=== PATIENT | male | born 2000 | race American Indian/Alaskan Native ===

== ENCOUNTER 2020-04-26 14:17 | Emergency (ER) | payer SELFPAY ==
[2020-04-26 14:54] VITALS: BP 157/80
--- NOTE | 2020-04-26 16:06 | Emergency Department Report ---
- General Chief complaint: Skin/Abscess/Foreign Body Stated complaint: RT ARM BUG BITE Time Seen by Provider: 04/26/20 16:03 Source: patient Mode of arrival: Ambulatory Limitations: No Limitations - History of Present Illness Initial comments: Patient is a 19-year-old male who presents the emergency room with complaints of a possible insect bite to his right forearm that occurred approximately 4 to 5 days ago. He states that he popped the bump a couple of days ago. He does not remember seeing or feeling anything bite him. He denies any drainage currently. He denies any fever, vomiting, diarrhea, chills, any other symptoms. He denies any past medical history or allergies to medications. - Related Data Previous Rx's Medication Instructions Recorded Last Taken Type Neomycin/Bacitracin/Polymyxinb 1 applicatio TP BID #1 oint...g. 04/26/20 Unknown Rx [Triple Antibiotic Ointment] Sulfamethoxazole/Trimethoprim 1 each PO BID 7 Days #14 tablet 04/26/20 Unknown Rx [Bactrim DS TAB] Allergies Allergy/AdvReac Type Severity Reaction Status Date / Time No Known Allergies Allergy Unverified 04/26/20 14:51 Abscess Boil HPI - HPI Chief Complaint: Skin/Abscess/Foreign Body Stated Complaint: RT ARM BUG BITE Time Seen by Provider: 04/26/20 16:03 Home Medications: Previous Rx's Medication Instructions Recorded Last Taken Type Neomycin/Bacitracin/Polymyxinb 1 applicatio TP BID #1 oint...g. 04/26/20 Unknown Rx [Triple Antibiotic Ointment] Sulfamethoxazole/Trimethoprim 1 each PO BID 7 Days #14 tablet 04/26/20 Unknown Rx [Bactrim DS TAB] Allergies/Adverse Reactions: Allergies Allergy/AdvReac Type Severity Reaction Status Date / Time No Known Allergies Allergy Unverified 04/26/20 14:51 ED Review of Systems ROS: Stated complaint: RT ARM BUG BITE Other details as noted in HPI Comment: All other systems reviewed and negative ED Past Medical Hx - Past Medical History Additional medical history: CANT SEE OUT OF LEFT - Surgical History Past Surgical History?: No - Medications Home Medications: Home Medications Medication Instructions Recorded Confirmed Last Taken Type Neomycin/Bacitracin/Polymyxinb 1 applicatio TP BID #1 oint...g. 04/26/20 Unknown Rx [Triple Antibiotic Ointment] Sulfamethoxazole/Trimethoprim 1 each PO BID 7 Days #14 tablet 04/26/20 Unknown Rx [Bactrim DS TAB] ED Physical Exam - General Limitations: No Limitations General appearance: alert, in no apparent distress - Head Head exam: Present: atraumatic, normocephalic - Eye Eye exam: Present: normal appearance - ENT ENT exam: Present: mucous membranes moist - Neurological Exam Neurological exam: Present: alert, oriented X3 - Psychiatric Psychiatric exam: Present: normal affect, normal mood - Skin Skin exam: Present: warm, dry, other (2 cm area of induration and erythema present to the right forearm, no fluctuance, no active drainage, no necrosis, very small area of surrounding erythema, no tracking up the arm) ED Course Vital Signs 04/26/20 04/26/20 14:54 16:02 Temperature 98.7 F 98.7 F Pulse Rate 86 88 Respiratory 18 18 Rate Blood Pressure 157/80 157/80 O2 Sat by Pulse 100 100 Oximetry ED Medical Decision Making - Medical Decision Making Patient is a 19-year-old male who presents the emergency room with complaints of a possible insect bite to his right forearm that occurred approximately 4 to 5 days ago. He states that he popped the bump a couple of days ago. He does not remember seeing or feeling anything bite him. He denies any drainage currently. He denies any fever, vomiting, diarrhea, chills, any other symptoms. He denies any past medical history or allergies to medications. VSS. on exam: 2 cm area of induration and erythema present to the right forearm, no fluctuance, no active drainage, no necrosis, very small area of surrounding erythema, no tracking up the arm. Examination consistent with cellulitis, no drainable abscess at this time. Patient given prescription for Bactrim and triple antibiotic ointment. Advised patient that the area need to be reexamined in the next 3 days, discussed with patient that if infection began worsening that he may need to have an incision and drainage procedure, at this time there is no abscess to be drained, will cover patient with course of antibiotics to treat for cellulitis. advised pt Please use medication as prescribed. Please use warm compresses 3 times a day. Please have area reexamined in 3 days. Please follow-up with your primary care doctor. Return to emergency room immediately for any new or worsening symptoms including but not limited to worsening swelling, worsening redness, worsening pain, etc. If antibiotics do not clear infection may have to have a incision and drainage procedure done in the emergency department. Critical care attestation.: If time is entered above; I have spent that time in minutes in the direct care of this critically ill patient, excluding procedure time. ED Disposition Clinical Impression: Insect bite Qualifiers: Encounter type: initial encounter Site of insect bite: forearm Laterality: right Qualified Code(s): S50.861A - Insect bite (nonvenomous) of right forearm, initial encounter Cellulitis Qualifiers: Site of cellulitis: extremity Site of cellulitis of extremity: upper extremity Laterality: right Qualified Code(s): L03.113 - Cellulitis of right upper limb Disposition: TO HOME OR SELFCARE Is pt being admited?: No Does the pt Need Aspirin: No Condition: Stable Instructions: Cellulitis (ED), Insect Bite or Sting (ED) Additional Instructions: Please use medication as prescribed. Please use warm compresses 3 times a day. Please have area reexamined in 3 days. Please follow-up with your primary care doctor. Return to emergency room immediately for any new or worsening symptoms including but not limited to worsening swelling, worsening redness, worsening pain, etc. If antibiotics do not clear infection may have to have a incision and drainage procedure done in the emergency department. Prescriptions: Sulfamethoxazole/Trimethoprim [Bactrim DS TAB] 1 each PO BID 7 Days #14 tablet Neomycin/Bacitracin/Polymyxinb [Triple Antibiotic Ointment] 1 applicatio TP BID #1 oint...g. Referrals: RL WORRELL MD [Staff Physician] - 2-3 Days [facility] [Provider Group] - 2-3 Days [facility] [Outside] - 2-3 Days [facility] [Outside] - 2-3 Days Time of Disposition: 16:04 Print Language: AZERI
== END 2020-04-26 16:19 | disposition home or self-care (01) ==
LOC: ED 14:17
DX: S50.861A Insect bite (nonvenomous) of right forearm, initial encounter (principal); L03.113 Cellulitis of right upper limb; W57.XXXA Bitten or stung by nonvenomous insect and other nonvenomous arthropods, initial encounter; Y93.89 Activity, other specified; Y92.89 Other specified places as the place of occurrence of the external cause; Y99.8 Other external cause status
CPT/HCPCS: 99282

== ENCOUNTER 2021-10-30 18:48 | Emergency (ER) | payer SELFPAY ==
[2021-10-30 19:30] VITALS: BP 145/74
[2021-10-31] MEDS ORDERED: DOXYCYCLINE 100 MG CAP PO ONE (00:35)
[2021-10-31] MEDS ORDERED: IBUPROFEN 800 MG TAB PO ONE (00:35)
--- NOTE | 2021-10-31 00:40 | Emergency Department Report ---
ED General Adult HPI - General Chief complaint: Abdominal Pain Stated complaint: ABD PAIN Source: patient Mode of arrival: Ambulatory Limitations: No Limitations - History of Present Illness Initial comments: Patient is a 21-year-old -[place] male with no past medical history presents to the ED with complaint of acute onset persistent nontraumatic right inguinal pain with prominent swollen painful lymph nodes for the last 2 weeks. Patient states that he performs heavy lifting at work routinely and occasionally experiences frequent flareup pain of the inguinal areas. Patient denies fall, traumatic injury, dysuria, urinary frequency and urgency, testicular pain, abdominal pain, back pain, change in vision, fever, chills, nausea and vomiting, diarrhea, hematuria, or urinary or bowel incontinence. MD Complaint: Right inguinal pain and swelling -: Sudden, week(s) (2) Location: pelvis (right inguinal area) Radiation: non-radiation Severity scale (0 -10): 8 Quality: aching, sharp Consistency: constant Worsens with: movement Associated Symptoms: denies other symptoms. denies: confusion, chest pain, cough, diaphoresis, fever/chills, headaches, loss of appetite, malaise, nausea/vomiting, rash, seizure, shortness of breath, syncope, weakness Treatments Prior to Arrival: none - Related Data Previous Rx's Medication Instructions Recorded Last Taken Type Neomycin/Bacitracin/Polymyxinb 1 applicatio TP BID #1 oint...g. 04/26/20 Unknown Rx [Triple Antibiotic Ointment] Sulfamethoxazole/Trimethoprim 1 each PO BID 7 Days #14 tablet 04/26/20 Unknown Rx [Bactrim DS TAB] Doxycycline Hyclate 100 mg PO Q12H #20 cap 10/31/21 Unknown Rx Ibuprofen [Motrin] 800 mg PO Q8HR PRN #30 tablet 10/31/21 Unknown Rx Allergies Allergy/AdvReac Type Severity Reaction Status Date / Time No Known Allergies Allergy Verified 10/30/21 19:33 ED Review of Systems ROS: Stated complaint: ABD PAIN Other details as noted in HPI Constitutional: denies: chills, fever Eyes: denies: eye pain, eye discharge, vision change ENT: denies: ear pain, throat pain Respiratory: denies: cough, shortness of breath, wheezing Cardiovascular: denies: chest pain, palpitations Endocrine: no symptoms reported Gastrointestinal: denies: abdominal pain, nausea, diarrhea Genitourinary: denies: urgency, dysuria Musculoskeletal: arthralgia (right inguinal pain and swollen lymph nodes). denies: back pain, joint swelling Skin: denies: rash, lesions, change in color, change in hair/nails, pruritus Neurological: denies: headache, weakness, numbness, paresthesias, abnormal gait, vertigo Psychiatric: denies: anxiety, depression Hematological/Lymphatic: denies: easy bleeding, easy bruising ED Past Medical Hx - Past Medical History Previous Medical History?: No Additional medical history: CANT SEE OUT OF LEFT - Surgical History Past Surgical History?: Yes Additional Surgical History: hx of testicle hernia surgery - Social History Smoking Status: Never Smoker Substance Use Type: None - Medications Home Medications: Home Medications Medication Instructions Recorded Confirmed Last Taken Type Neomycin/Bacitracin/Polymyxinb 1 applicatio TP BID #1 oint...g. 04/26/20 Unknown Rx [Triple Antibiotic Ointment] Sulfamethoxazole/Trimethoprim 1 each PO BID 7 Days #14 tablet 04/26/20 Unknown Rx [Bactrim DS TAB] Doxycycline Hyclate 100 mg PO Q12H #20 cap 10/31/21 Unknown Rx Ibuprofen [Motrin] 800 mg PO Q8HR PRN #30 tablet 10/31/21 Unknown Rx ED Physical Exam - General Limitations: No Limitations General appearance: alert, in no apparent distress - Head Head exam: Present: atraumatic, normocephalic, normal inspection - Eye Eye exam: Present: normal appearance, PERRL, EOMI Pupils: Present: normal accommodation - ENT ENT exam: Present: normal exam, normal orophraynx, mucous membranes moist, TM's normal bilaterally, normal external ear exam - Neck Neck exam: Present: normal inspection, full ROM, other (Prominent, swollen severely tender right inguinal lymph nodes) - Respiratory Respiratory exam: Present: normal lung sounds bilaterally. Absent: respiratory distress, wheezes, rales, rhonchi, chest wall tenderness, accessory muscle use, decreased breath sounds, prolonged expiratory - Cardiovascular Cardiovascular Exam: Present: regular rate, normal rhythm, normal heart sounds. Absent: systolic murmur, diastolic murmur, rubs, gallop - GI/Abdominal GI/Abdominal exam: Present: soft, normal bowel sounds. Absent: tenderness, guarding, rebound, hyperactive bowel sounds, hypoactive bowel sounds, organomegaly, mass - Extremities Exam Extremities exam: Present: normal inspection, full ROM, tenderness, normal capillary refill, other (Palpable severe right inguinal lymph node tenderness and swelling). Absent: pedal edema - Back Exam Back exam: Present: normal inspection, full ROM. Absent: tenderness, CVA tenderness (R), CVA tenderness (L), muscle spasm, paraspinal tenderness, vertebral tenderness - Neurological Exam Neurological exam: Present: alert, oriented X3, CN II-XII intact, normal gait, reflexes normal - Psychiatric Psychiatric exam: Present: normal affect, normal mood - Skin Skin exam: Present: warm, dry, intact, normal color. Absent: rash ED Course Vital Signs 10/30/21 19:29 Temperature 98.6 F Pulse Rate 74 Respiratory 18 Rate Blood Pressure 145/74 O2 Sat by Pulse 98 Oximetry ED Medical Decision Making - Medical Decision Making This is a 21-year-old -[place] male with no past medical history presents to the ED with complaint of acute onset persistent nontraumatic right inguinal pain with prominent swollen painful lymph nodes for the last 2 weeks. Patient states that he performs heavy lifting at work routinely and occasionally experiences frequent flareup pain of the inguinal areas. In the ED, patient is alert and oriented x3 and is not in any distress. Based on the history and physical exam findings, the patient was treated for pain in the ED and was discharged home on medications. Patient was advised to follow-up with his primary care physician in 5 to 7 days for reevaluation or return to the ED immediately if symptoms get worse. - Differential Diagnosis Inguinal lymphadenopathy; inguinal muscle strain; cellulitis; folliculitis Critical care attestation.: If time is entered above; I have spent that time in minutes in the direct care of this critically ill patient, excluding procedure time. ED Disposition Clinical Impression: Deep inguinal lymphadenopathy, Strain of muscle of right groin region Disposition: HOME / SELF CARE / HOMELESS Is pt being admited?: No Does the pt Need Aspirin: No Condition: Stable Instructions: Muscle Strain, [id number], Lymphadenopathy Additional Instructions: Take medication with food, drink plenty of fluids and follow-up with your primary care physician in 5 to 7 days for reevaluation. Return to the ED immediately if symptoms get worse. Prescriptions: Doxycycline Hyclate 100 mg PO Q12H #20 cap Ibuprofen [Motrin] 800 mg PO Q8HR PRN #30 tablet PRN Reason: Pain , Severe (7-10) Referrals: [facility] [Provider Group] - 7-10 days Forms: Work/School Release Form(ED) Time of Disposition: 00:42 Print Language: [place]
== END 2021-10-31 01:59 | disposition home or self-care (01) ==
LOC: ED 18:48
DX: S39.011A Strain of muscle, fascia and tendon of abdomen, initial encounter (principal); R59.1 Generalized enlarged lymph nodes; Z79.899 Other long term (current) drug therapy; X50.0XXA Overexertion from strenuous movement or load, initial encounter; X50.9XXA Other and unspecified overexertion or strenuous movements or postures, initial encounter; Y93.89 Activity, other specified; Y92.89 Other specified places as the place of occurrence of the external cause; Y99.0 Civilian activity done for income or pay
CPT/HCPCS: 99282